=== PATIENT | male | born 1965 | race Caucasian/White ===

== ENCOUNTER 2025-05-13 01:28 | Day surgery (SDC) | payer BC, SELFPAY ==
[2025-04-22 10:00] VITALS: BMI 26.9
--- OUTSIDE RECORDS SUMMARY | 2025-05-13 01:31 | XMS_ITS | Clinical Summary ---
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 This disclosure is being madepursuant to the Care Everywhere program and may not contain all information available regarding this patient. Last updated 18.[facility] Allergies No known active allergies Medications * Be aware that medications may not be up to date on this document. Alwaysverify current medications with the patient. No known medications Social History Tobacco Use Types Packs/Day Years Used Date Smoking Tobacco: Never Smokeless Tobacco: Never Sex and Gender Information Value Date Recorded Sex Assigned at Not on file Legal Sex Male 5:08 PM [employer] Gender Identity Not on file Sexual Orientation Not on file Last Filed Vital Signs Vital Sign Reading Time Taken Comments Blood Pressure 118/86 08/27/2019 9:49 AM CDT Pulse 60 08/27/2019 9:49 AM CDT Temperature 36.9 C (98.4 F) 08/27/2019 9:49 AM CDT Respiratory Rate 16 08/27/2019 9:49 AM CDT Oxygen Saturation 96% 08/27/2019 9:49 AM CDT Inhaled Oxygen Concentration - - Weight 83.9 kg (185 lb) 08/27/2019 9:49 AM CDT Height 170.2 cm (5' 7) 08/27/2019 9:49 AM CDT Body Mass Index 28.98 08/27/2019 9:49 AM CDT Plan of Treatment Health Maintenance Due Date Last Done Comments COLOGUARD (AGES 45-75) - COL ON CA SCREENING 1965 COLON MONITORING 1965 COLONOSCOPY - COLON CA SCREENING 1965 CT COLONOGRAPHY - COLON CA SCREENING 1965 Colorectal Cancer Screening 1965 FIT - COLON CA SCREENING 1965 FLEX SIG - COLON CA SCREENING 1965 LIPID TESTING 1965 HIV SCREENING 1980 HEPATITIS C SCREENING 05/07/1983 DTAP/TDAP/TD VACCINES (1 - Tdap) 1984 HEPATITIS B VACCINE (1 of 3 - 19+ 3-dose series) 1984 PNEUMOCOCCAL VACCINE 50+ (1 of 1 - PCV) 2015 ZOSTER VACCINE (1 of 2) 2015 SCREENING FOR DIABETES 12/20/2018 COVID-19 VACCINE (1 - 2023-2 5 season) 2024 DEPRESSION SCREENING 11/05/2024 INFLUENZA VACCINE (Season Ended) 2025 HIB VACCINE Aged Out No longer eligi ble based on patient's age to complete this topic HPV VACCINE Aged Out No longer eligi ble based on patient's age to complete this topic MENINGOCOCCAL (Group B) VACC INE SHARED DECISION-MAKING Aged Out No longer eligibl e based on patient's age to complete this topic MENINGOCOCCAL GROUPS A/C/Y/W VACCINE Aged Out No longer eligible b ased on patient's age to complete this topic Insurance 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
[2025-05-13 11:30] VITALS: BP 127/84; PULSE 56; RESP 18; TEMP 36.5; O2SAT 97
[2025-05-13] MEDS: LACTATED RINGERS 1,000 ML 150 ML IV CONT (11:56)
--- NOTE | 2025-05-13 12:21 | P.PNAN_ITS ---
Anes - Initial Pre Proc Eval Procedure: Operation Date: 05/13/25 13:00 Proposed Procedures p Screening Colonoscopy - Axel Field MD Date/Time: 05/13/25 12:21 Surgeon: Axel Field MD Pre Op Diagnosis: screening Patient Data Age: 60 Gender: M Height: 1.7 m Weight: 77.7 kg Last Vital Signs Temp 97.7 F 05/13/25 11:30 Pulse 56 L 05/13/25 11:30 Resp 18 05/13/25 11:30 BP 127/84 05/13/25 11:30 Pulse Ox 97 05/13/25 11:30 O2 Del Method Room Air 05/13/25 11:30 Allergies Allergy/AdvReac Type Severity Reaction Status Date / Time No Known Allergies Allergy Unverified 04/22/25 10:00 Home Medications ?Medication ?Instructions ?Recorded ?Confirmed ?Type sildenafil (pulm.hypertension) 20 See Rx Instructions PO ONCE #90 02/09/25 04/22/25 Rx mg tablet tabs Patient hx anesthesia problems: none Family hx anesthesia problems: none Results Review: All pre-operative results and documents have been reviewed as part of the pre- operative evaluation. [facility] Past Medical History Medical History BMI 26.0-26.9,adult Mixed hyperlipidemia (03/06/23) cholesterol 186, triglycerides 129, HDL 49, LDL 113 with ratio 3.8 on 03/06/2023. cholesterol 208, triglycerides 70, HDL 63, LDL 129 with ratio 3.3 on 03/11/2025. Colon cancer screening normal colonoscopy at age 50 with recheck in 10 years. Male erectile dysfunction, unspecified total testosterone 468 with free testosterone 46.1 on 03/06/2023. Testosterone 470 with free testosterone 65.8 on 03/11/2025. Chewing tobacco nicotine dependence 1 cans per week Seasonal allergic rhinitis BMI 25.0-25.9,adult Overweight (BMI 25.0-29.9) Encounter for prostate cancer screening PSA 1.26 on 03/06/2023. PSA 2.75 on 03/11/2025. Encounter for wellness examination in adult Family History Family History Mother Diabetes mellitus Grandparent Diabetes mellitus Social History Social History Smoking status: Never smoker Tobacco type: smokeless tobacco ( chews 1 can per week) Smokeless tobacco user: chewing tobacco Alcohol intake: current Drinks per week: 6 Alcohol use details: social Substance use: never Substance use type: does not use Lack of Transportation: No Lack of Food: Never True Current Housing: I Have Housing Concerned About Future Housing: No Difficulty Paying Gas/Electric Bills: No Difficulty Paying for Meds: No Currently Unemployed: No Education: High School Diploma/GED Difficulty w/ Childcare or Family Care: No Living arrangements: with family Spiritual care concerns: No Anes - Eval Final PreProcedure Day of Procedure 05/13/25 12:21 Patient weight: normal Lungs: normal air movement Airway: Mallampati scale class II and special considerations (Upper partial, teeth intact are not loose. ) Neurological: alert and oriented Last oral intake: >/= 8 hours ASA classification: I Emergent: no Anesthetic plan: proceed Anesthesia type and monitoring: general GIVS and standard monitoring Results Review: All pre-operative results and documents have been reviewed as part of the pre- operative evaluation. Oveall good health, active working in a [employer], no cp or sob. Informed Consent: The patient's anesthetic plan and its attendant risks and benefits were discussed with the patient/family/POA. Questions were solicited and answers provided to the satisfaction of the patient/family/POA.
--- NOTE | 2025-05-13 13:45 | PM.IMHP ---
H&P: HPI History of Present Illness Date/Time: 05/13/25 13:45 Chief Complaint: Screening colonoscopy Narrative: This is the patient's 2nd colonoscopy. There are no GI symptoms and there is no family history of colorectal cancer. Review of Systems Review of Systems: All systems reviewed & are unremarkable except as noted in HPI and below PMFSH Past Medical History Medical History BMI 26.0-26.9,adult Mixed hyperlipidemia (03/06/23) cholesterol 186, triglycerides 129, HDL 49, LDL 113 with ratio 3.8 on 03/06/2023. cholesterol 208, triglycerides 70, HDL 63, LDL 129 with ratio 3.3 on 03/11/2025. Colon cancer screening normal colonoscopy at age 50 with recheck in 10 years. Male erectile dysfunction, unspecified total testosterone 468 with free testosterone 46.1 on 03/06/2023. Testosterone 470 with free testosterone 65.8 on 03/11/2025. Chewing tobacco nicotine dependence 1 cans per week Seasonal allergic rhinitis BMI 25.0-25.9,adult Overweight (BMI 25.0-29.9) Encounter for prostate cancer screening PSA 1.26 on 03/06/2023. PSA 2.75 on 03/11/2025. Encounter for wellness examination in adult Family History Family History Mother Diabetes mellitus Grandparent Diabetes mellitus Social History Social History Smoking status: Never smoker Tobacco type: smokeless tobacco ( chews 1 can per week) Smokeless tobacco user: chewing tobacco Alcohol intake: current Drinks per week: 6 Alcohol use details: social Substance use: never Substance use type: does not use Lack of Transportation: No Lack of Food: Never True Current Housing: I Have Housing Concerned About Future Housing: No Difficulty Paying Gas/Electric Bills: No Difficulty Paying for Meds: No Currently Unemployed: No Education: High School Diploma/GED Difficulty w/ Childcare or Family Care: No Living arrangements: with family Spiritual care concerns: No Meds Home Medications and Allergies Home Medications ?Medication ?Instructions ?Recorded ?Confirmed ?Type sildenafil (pulm.hypertension) 20 See Rx Instructions PO ONCE #90 04/07/25 06/18/25 Rx mg tablet tabs Allergies Allergy/AdvReac Type Severity Reaction Status Date / Time No Known Allergies Allergy Unverified 04/22/25 10:00 Vital Signs Vital Signs - 24 hr 05/13/25 11:30 Temperature 97.7 F Pulse Rate 56 L Respiratory Rate 18 Blood Pressure 127/84 Pulse Oximetry 97 Oxygen Delivery Room Air Exam Const: General: cooperative and healthy appearing Resp: Effort & Inspection: normal respiratory effort and able to speak in complete sentences Auscultation: clear to auscultation bilaterally Cardio: Rate: regular rate Rhythm: regular rhythm GI: Inspection: normal to inspection GI Palp: No No hepatosplenomegaly present Auscultation: normal bowel sounds Rectal Exam: deferred Skin: General skin exam: normal color Psych: Appearance: grossly normal Mental Status: mental status grossly normal Assessment and Plan Assessment and plan (1) Colon cancer screening: Code(s): Z12.11 - Encounter for screening for malignant neoplasm of colon Status: Acute Assessment and Plan: The patient is deemed a good candidate for the procedure. Consent signed. Will proceed.
[2025-05-13 14:12] VITALS: BP 113/76; PULSE 55; RESP 19; O2SAT 98
[2025-05-13 14:22] VITALS: BP 110/76; PULSE 53; RESP 15; O2SAT 100
[2025-05-13 14:32] VITALS: BP 123/85; PULSE 51; RESP 16; O2SAT 100
== END 2025-05-13 14:42 | disposition home or self-care (01) ==
PROVIDERS: PCP Family Medicine; Referring Provider Family Medicine; Visit Provider Internal Medicine Gastroenterology
PROC: 0DJD8ZZ Inspection of Lower Intestinal Tract, Via Natural or Artificial Opening Endoscopic (ICD-10-PCS; CPT 45378; principal; 2025-05-13 13:00)
DX: Z12.11 Encounter for screening for malignant neoplasm of colon (principal); K64.8 Other hemorrhoids; E78.2 Mixed hyperlipidemia; N52.9 Male erectile dysfunction, unspecified; F17.220 Nicotine dependence, chewing tobacco, uncomplicated
CPT/HCPCS: 45378; J2003; J2704; J7120